=== PATIENT | female | born 1940 | race Caucasian/White ===

== ENCOUNTER 2017-04-22 16:25 | Emergency (ER) | payer MEDICARE ==
[2017-04-22] MEDS ORDERED: Acetaminophen TAB* 325 MG PO ONE (18:00)
[2017-04-22 19:08] LABS: Hematocrit 43 % (35-47); Hemoglobin 14.2 g/dl (12.0-16.0); Mean Corpuscular HGB Conc 33 g/dl (31-36); Mean Corpuscular Hemoglobin 30 pg (27-31); Mean Corpuscular Volume 90 fL (80-97); Mean Platelet Volume 8 um3 (7.4-10.4); Red Cell Distribution Width 14 % (10.5-15); White Blood Count 16.5 10^3/ul (3.5-10.8)
[2017-04-22 19:40] LABS: Albumin 3.8 g/dL (3.2-5.2); BUN/Creatinine Ratio 22.9 (8-20); Calcium 8.9 mg/dL (8.6-10.3); EGFR African American 45.4 (>60); EGFR Non-African American 35.3 (>60); Globulin 2.9 g/dL (2-4); Potassium 4.5 mmol/L (3.5-5.0); Total Bilirubin 0.4 mg/dL (0.2-1.0); Total Protein 6.7 g/dL (6.4-8.9)
[2017-04-22] MEDS ORDERED: Iodixanol* (CONTRAST) 320 MG/ML 100 ML SDV IV ONE (19:59)
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
[2017-04-22 22:03] VITALS: BP 125/68
== END 2017-04-22 22:03 | disposition home or self-care (01) ==
LOC: ED 16:25
DX: S09.90XA Unspecified injury of head, initial encounter (principal); S30.811A Abrasion of abdominal wall, initial encounter; V49.40XA Driver injured in collision with unspecified motor vehicles in traffic accident, initial encounter; Y92.410 Unspecified street and highway as the place of occurrence of the external cause; R51 Headache; M54.2 Cervicalgia; I10 Essential (primary) hypertension
CPT/HCPCS: 36415; 70450; 71260; 72125; 74177; 80053; 85025; 99283; A9270-GY; Q9967

== ENCOUNTER 2019-10-16 14:00 | Emergency (ER) | payer MEDICARE ==
[2019-10-16] MEDS ORDERED: Acetaminophen TAB* 325 MG PO ONE (15:46)
[2019-10-16] MEDS ORDERED: traMADol TAB* 50 MG PO ONE (17:26)
[2019-10-16 17:42] VITALS: BP 169/74
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
== END 2019-10-16 17:39 | disposition home or self-care (01) ==
LOC: ED 14:00
DX: I10 Essential (primary) hypertension (principal); S79.922A Unspecified injury of left thigh, initial encounter; X50.9XXA Other and unspecified overexertion or strenuous movements or postures, initial encounter; Y93.54 Activity, bowling; Y92.39 Other specified sports and athletic area as the place of occurrence of the external cause; Z85.3 Personal history of malignant neoplasm of breast; Z90.12 Acquired absence of left breast and nipple
CPT/HCPCS: 99282; A9270-GY

== ENCOUNTER 2023-04-15 16:28 | Inpatient (IN) ==
[2023-04-15] MEDS ORDERED: Lactated Ringers 1000 ml BAG 1,000 ML IV ONE (16:51)
[2023-04-15 17:23] LABS: Hematocrit 31.8 % (35-45); Hemoglobin 11.1 g/dL (11.5-14.3); Mean Corpuscular Hemoglobin 29.9 pg (27-33); Mean Corpuscular Hgb Conc 34.8 g/dL (31-36); Mean Corpuscular Volume 86.1 fL (80-97); Mean Platelet Volume 7.2 fL (7.5-11.2); Platelet Count 261 10^3/uL (150-450); Red Cell Distribution Width 14.2 % (12-17); White Blood Count 20.6 10^3/uL (3.8-11.8)
[2023-04-15 17:32] LABS: Activated Partial Thrombo Time 25.8 seconds (26.0-38.0); INR 1.25 (0.88-1.18)
[2023-04-15 17:42] LABS: ALT 67 U/L (7-52); Albumin 3.2 g/dL (3.2-5.2); Albumin/Globulin Ratio 0.8 (1-3); Alkaline Phosphatase 69 U/L (35-149); Blood Urea Nitrogen 44 mg/dL (6-24); C Reactive Protein 325.92 mg/L (<8.01); CO2 Carbon Dioxide 20 mmol/L (22-32); Calcium 8.6 mg/dL (8.6-10.3); Chloride 99 mmol/L (101-111); Creatinine, Serum 1.77 mg/dL (0.51-0.95); Globulin 3.9 g/dL (2-4); Glucose 133 mg/dL (70-100); Sodium 130 mmol/L (135-145); Total Protein 7.1 g/dL (6.4-8.9); eGFR CKD-EPI 28.2 (>60)
[2023-04-15 17:45] LABS: Anion Gap 11 mmol/L (2-16)
[2023-04-15 17:48] LABS: High Sens Troponin Baseline 214 pg/mL (<15)
[2023-04-15] MEDS ORDERED: Cefepime 1 GM in Dextrose 1 GM/50 ML BAG IV ONE (18:25)
[2023-04-15] MEDS ORDERED: Vancomycin 1,000 MG in NS 0.9% 250 ml 250 ML IVPB ONE (18:25)
[2023-04-15 19:02] LABS: Potassium Redraw 3.4 mmol/L (3.5-5.0)
[2023-04-15 19:07] LABS: ABS Basophils 0.1 10^3/uL (0.0-0.1); ABS Lymphocytes 0.9 10^3/uL (1.0-4.8); ABS Monocytes 0.6 10^3/uL (0.0-0.9); ABS Nucleated RBC 0.01 10^3/ul; Eosinophil % 0.1 %; Lymphocyte % 4.3 %; RBC Morphology Normal (Normal)
[2023-04-15 19:37] LABS: Urine Appearance Cloudy; Urine Bilirubin Negative (Negative); Urine Blood 2+ (Negative); Urine Color Yellow; Urine Glucose Negative (Negative); Urine Ketones Negative (Negative); Urine Nitrite Negative (Negative); Urine Protein 3+(>=500 mg/dL) (Negative); Urine Specific Gravity 1.015 (1.002-1.030); Urine Urobilinogen Negative (Negative)
[2023-04-15 19:46] LABS: Urine Bacteria Absent (Absent); Urine Granular Casts Present (Absent); Urine Red Blood Cell Trace(0-2/hpf) (Absent); Urine White Blood Cell Trace(0-5/hpf) (Absent)
[2023-04-15] MEDS ORDERED: Polyethylene Glycol 3350 17 GM PACKET PO PRN (20:28)
[2023-04-15] MEDS ORDERED: Senna TAB 8.6 mg TAB PO PRN (20:28)
[2023-04-15] MEDS ORDERED: Al Hydrox/Mg Hydrox/Simet LIQ 30 ML UDC PO PRN (20:28)
[2023-04-15] MEDS ORDERED: cefTRIAXone 2 gm/50 mL D5W 2 GM/50 ML BAG IV SCH (20:30)
[2023-04-15] MEDS ORDERED: NS 0.9% 1000 ml BAG 1,000 ML IV SCH (20:30)
[2023-04-15] MEDS ORDERED: Azithromycin 500 mg/250 ml NS 500 MG/250 ML BAG IVPB SCH (21:00)
[2023-04-15] MEDS ORDERED: Simvastatin 20 mg TAB (NF) PO ONE (21:32)
[2023-04-15] MEDS ORDERED: Potassium Chlor 20 meq TAB.ER PO ONE (21:37)
[2023-04-16] MEDS: Enoxaparin 30 MG/0.3 ML SYR SUBCUT SCH ×2 (00:01→20:17)
[2023-04-16 05:37] LABS: ABS Lymphocytes 0.9 10^3/uL (1.0-4.8); ABS Monocytes 0.6 10^3/uL (0.0-0.9); ABS Neutrophils 14.2 10^3/uL (1.5-7.6); Hematocrit 31.5 % (35-45); Hemoglobin 11.1 g/dL (11.5-14.3); Lymphocyte % 5.6 %; Mean Corpuscular Hemoglobin 30.1 pg (27-33); Mean Corpuscular Hgb Conc 35.3 g/dL (31-36); Mean Corpuscular Volume 85.2 fL (80-97); Platelet Count 218 10^3/uL (150-450); Red Cell Distribution Width 14.4 % (12-17); White Blood Count 15.7 10^3/uL (3.8-11.8)
[2023-04-16 06:10] LABS: Calcium 7.6 mg/dL (8.6-10.3); Potassium 3.8 mmol/L (3.5-5.0)
[2023-04-16 06:16] LABS: Creatinine, Serum 1.62 mg/dL (0.51-0.95); HDL Cholesterol 20.4 mg/dL; eGFR CKD-EPI 31.3 (>60)
[2023-04-16] MEDS: Lactated Ringers 1000 ml BAG 1,000 ML IV SCH (17:21)
[2023-04-16] MEDS ORDERED: cefTRIAXone 2 gm/50 mL D5W 2 GM/50 ML BAG IV SCH (20:00)
[2023-04-16] MEDS: Azithromycin 500 mg/250 ml NS 500 MG/250 ML BAG IVPB SCH (21:20)
[2023-04-17] MEDS: Lactated Ringers 1000 ml BAG 1,000 ML IV SCH ×2 (00:25→08:54)
[2023-04-17 05:41] LABS: ABS Eosinophils 0.1 10^3/uL (0.0-0.5); ABS Lymphocytes 0.9 10^3/uL (1.0-4.8); ABS Monocytes 0.6 10^3/uL (0.0-0.9); ABS Neutrophils 8.7 10^3/uL (1.5-7.6); Hematocrit 31.5 % (35-45); Hemoglobin 11.1 g/dL (11.5-14.3); Lymphocyte % 8.4 %; Mean Corpuscular Hgb Conc 35.2 g/dL (31-36); Mean Corpuscular Volume 85.4 fL (80-97); Mean Platelet Volume 7.3 fL (7.5-11.2); Platelet Count 222 10^3/uL (150-450); Red Blood Count 3.69 10^6/uL (3.63-4.92); Red Cell Distribution Width 14.5 % (12-17); White Blood Count 10.4 10^3/uL (3.8-11.8)
[2023-04-17 06:02] LABS: Calcium 7.9 mg/dL (8.6-10.3); Creatinine, Serum 1.44 mg/dL (0.51-0.95); Potassium 3.7 mmol/L (3.5-5.0); eGFR CKD-EPI 36.1 (>60)
[2023-04-17] MEDS ORDERED: guaiFENesin 100 mg/5 ml LIQ unit dose cup PO PRN (11:24)
[2023-04-17] MEDS ORDERED: Saline NASAL SPRAY 0.65% BTL BOTH NARES PRN (11:24)
[2023-04-17] MEDS: Azithromycin 500 mg/250 ml NS 500 MG/250 ML BAG IVPB SCH (20:53)
[2023-04-17] MEDS: Enoxaparin 30 MG/0.3 ML SYR SUBCUT SCH (20:54)
[2023-04-18 06:33] LABS: Albumin 2.5 g/dL (3.2-5.2); Albumin/Globulin Ratio 0.9 (1-3); Calcium 8.1 mg/dL (8.6-10.3); Creatinine, Serum 1.12 mg/dL (0.51-0.95); Globulin 2.9 g/dL (2-4); Total Bilirubin 0.3 mg/dL (0.2-1.0); Total Protein 5.4 g/dL (6.4-8.9); eGFR CKD-EPI 48.8 (>60)
[2023-04-18] MEDS: Azithromycin 500 mg/250 ml NS 500 MG/250 ML BAG IVPB SCH (21:05)
[2023-04-18] MEDS: Enoxaparin 30 MG/0.3 ML SYR SUBCUT SCH (21:06)
[2023-04-19 11:20] VITALS: BP 119/45
== END 2023-04-19 13:50 | disposition home or self-care (01) | DRG 871 ==
LOC: ED 16:28 → EDHOLD 20:15 → SUATTDRO 20:15 → MEDTELE 04-16 10:13
PROVIDERS: ADMIT Internal Medicine; ATTEND Internal Medicine